=== PATIENT | male | born 1995 | race Caucasian/White ===

== ENCOUNTER 2019-10-13 01:58 | Emergency (ER) | payer OTHER ==
[~2019-10-13] VITALS: Ht 177.8 cm; Wt 74.8 kg
[2019-10-13 01:59] VITALS: Ht 177.8 cm; Wt 74.8 kg
[2019-10-13 02:35] VITALS: BP 117/68
== END 2019-10-13 02:35 | disposition other institution (70) ==
LOC: ED 01:58
DX: Z02.89 Encounter for other administrative examinations (principal)